=== PATIENT | male | born 1965 | race Caucasian/White ===

== ENCOUNTER 2018-04-11 09:00 | Inpatient (IN) ==
[~2018-04-11 09:00] MED LIST: DEXTROSE 50% 25 GM/50 ML SYRINGE IV PRN; GLUCAGON 1 MG VIAL IM PRN; NITROGLYCERIN SL 0.4 MG TABLET SL PRN; ZOLPIDEM 5 MG TABLET PO PRN
[2018-04-11 10:03] LABS: Basophils # 0.1 10*3/uL (0.0-0.2); Basophils % 0.6 % (0.0-0.8); Eosinophils # 0.1 10*3/uL (0.0-0.87); Eosinophils % 0.8 % (0.00-10.9); Hematocrit 46.5 VOL% (42.0-52.0); Hemoglobin 15.2 GM/DL (14.0-18.0); Immature Granulocytes % 0.6 %; Immature Granulocytes Absolute 0.07 #; Lymphocytes % 18.3 % (21.2-54.2); Mean Corpuscular HGB Conc 32.7 GM/DL (32-36); Mean Corpuscular Hemoglobin 28 PG (27-34); Mean Corpuscular Volume 86.9 FL (87-102); Mean Platelet Volume 10.2 FL (9.6-12.0); Monocytes # 0.7 10*3/uL (0.11-0.8); Monocytes % 6.7 % (1.7-12.7); Neutrophils # 7.9 10*3/uL (1.4-7.4); Platelet Count 270 T/CUMM (130-400); Red Blood Count 5.35 MC/CUMM (3.8-5.5); Red Cell Distribution Width 13.2 % (9.3-17.3); White Blood Count 10.9 T/CUMM (4-12)
[2018-04-11] MEDS ORDERED: CEFUROXIME INJ 1,500 MG in SYRINGE 1 EACH IV ONE (10:16)
[2018-04-11 10:25] LABS: Albumin 3.3 G/DL (3.4-5.0); Bilirubin,Total 0.9 MG/DL (0.2-1.0); Calcium 9.6 MG/DL (8.5-10.1); Osmolality,Calculated 277.1 MOS/KG (273-304); Potassium 3.4 MMOL/L (3.5-5.1); Total Protein 7.7 G/DL (6.4-8.3)
[2018-04-11] MEDS: ROSUVASTATIN 20 MG TABLET PO SCH ×3 (12:14→21:38)
[2018-04-11] MEDS: CHLORTHALIDONE 25 MG TABLET PO SCH ×2 (12:15→12:34)
[2018-04-11] MEDS: ASPIRIN EC 81 MG TABLET PO SCH ×2 (12:15→12:34)
[2018-04-11] MEDS: CHLORHEXIDINE 0.12% ORAL RINSE 60 ML BOTTLE SWISH/SPIT SCH ×4 (12:15→20:45)
[2018-04-11] MEDS ORDERED: POTASSIUM CHLORIDE 20 MEQ TABLET PO ONE (13:35)
[2018-04-11 13:54] LABS: ABG Base Excess 2.6 MMOL/L (-2.5-2.5); ABG HCO3 25.9 MMOL/L (20-26); ABG Oxygen Saturation 97.2 % (95-100); ABG PCO2 35.9 MM HG (35-48); ABG PH 7.476 (7.35-7.45); ABG PO2 89.5 MM HG (80-95); Pt O2 Delivery Device Room Air
[2018-04-11] MEDS: CHLORHEXIDINE 4% SOLN 118 ML BOTTLE TOP SCH (18:24)
[2018-04-12] MEDS: CHLORHEXIDINE 0.12% ORAL RINSE 60 ML BOTTLE SWISH/SPIT SCH ×4 (01:38→22:10)
[2018-04-12] MEDS: CHLORHEXIDINE 4% SOLN 118 ML BOTTLE TOP SCH ×2 (01:39→10:23)
[2018-04-12] MEDS ORDERED: PAPAVERINE 60 MG/2 ML VIAL ONE (04:22)
[2018-04-12] MEDS ORDERED: VANCOMYCIN 1,000 MG VIAL ONE ×2 (04:23→05:45)
[2018-04-12] MEDS ORDERED: CEFUROXIME INJ 1,500 MG in SYRINGE 1 EACH IV ONE (05:30)
[2018-04-12] MEDS ORDERED: DIAZEPAM 5 MG TABLET PO ONE (06:00)
[2018-04-12] MEDS ORDERED: FAMOTIDINE 20 MG TABLET PO ONE (06:00)
[2018-04-12] MEDS ORDERED: NITROPRUSSIDE 50 MG/2 ML VIAL ONE (07:26)
[2018-04-12] MEDS ORDERED: ATROPINE 1 MG/10 ML SYRINGE ONE (07:27)
[2018-04-12] MEDS ORDERED: EPINEPHrine 1 MG/10 ML SYRINGE ONE (07:27)
[2018-04-12] MEDS ORDERED: PHENYLEPHRINE DRIP 40 MG/250 ML PREMIX IV ONE (07:27)
[2018-04-12] MEDS ORDERED: SODIUM BICARBONATE 50 MEQ/50 ML SYRINGE IV ONE ×2 (07:27→09:56)
[2018-04-12] MEDS ORDERED: CALCIUM CHLORIDE 1,000 MG/10 ML SYRINGE IV ONE (07:27)
[2018-04-12 07:38] LABS: ABG Base Excess -1.5 MMOL/L (-2.5-2.5); ABG HCO3 23.2 MMOL/L (20-26); ABG Oxygen Saturation 99.4 % (95-100); ABG PCO2 53.3 MM HG (35-48); ABG PH 7.299 (7.35-7.45); ABG TCO2 22.7 MMOL/L (23-27); Glucose Heart Surgery 136 MG/DL (74-106); Hemoglobin Heart Surgery 14.7 G/DL (14.0-18.0); Ionized Calcium Arterial 1.26 MMOL/L (1.21-1.46); PCO2 Patient Temp Arterial 53.3 MMHG; PH Patient Temp Arterial 7.299; Patient Temperature 37 CELCIUS; Potassium Heart/CVR 4.1 MMOL/L (3.5-5.1); Sodium Heart/CVR 137 MMOL/L (135-145)
[2018-04-12 07:43] LABS: Apearance,Urine CLEAR (Clear); Bilirubin,Urine Negative (Negative); Blood, Urine Moderate mg/dL (Negative); Glucose,Urine (UA) Negative (Negative); Ketones,Urine Negative (Negative); Nitrite,Urine Negative (Negative); Protein,Urine Negative; Urine Color Yellow (Yellow); Urine Specific Gravity 1.013 (1.001-1.035); Urine Urobilinogen < 2.0 EU/DL (0.2-1.0)
[2018-04-12 07:57] LABS: RBC,Urine 15-20 /HPF (0-4)
[2018-04-12 07:58] LABS: Bacteria,Urine Few /HPF (Few); Mucus,Urine Trace /LPF (Occasional)
[2018-04-12 09:08] LABS: Hematocrit Heart Surgery 29.5 PERCENT (42-52); Hemoglobin Heart Surgery 9.5 G/DL (14.0-18.0); PCO2 Patient Temp Venous 40.4 MM HG; PH Patient Temp Venous 7.4; PO2 Patient Temp Venous 39.8 MM HG; Potassium Heart/CVR 4.9 MMOL/L (3.5-5.1); VBG Base Excess 0.4 MEQ/L (0-4); VBG HCO3 24.5 MEQ/L (24-28); VBG Oxygen Saturation 80.5 %; VBG PCO2 44.5 MMHG (41-51); VBG PH 7.371; VBG PO2 45.7 MMHG (17-40)
[2018-04-12] MEDS ORDERED: ALBUMIN 5% 12.5 GM/250 ML VIAL IV ONE (09:16)
[2018-04-12] MEDS ORDERED: POTASSIUM CHLORIDE RIDER 100 ML IV ONE (09:16)
[2018-04-12] MEDS ORDERED: CALCIUM CHLORIDE 1,000 MG/10 ML VIAL IV ONE (09:37)
[2018-04-12] MEDS ORDERED: PHENYLEPHRINE DRIP 20 MG/250 ML PREMIX IV ONE (09:37)
[2018-04-12] MEDS ORDERED: HEPARIN/NACL 0.9% 2 UNITS/ML 500 ML IV ONE (09:38)
[2018-04-12] MEDS ORDERED: SUFentanil 250 MCG/5 ML AMP ONE ×2 (09:38→09:40)
[2018-04-12] MEDS ORDERED: SEVOFLURANE 1 UNIT/15 MINUTE INH ONE (09:38)
[2018-04-12] MEDS ORDERED: MIDAZOLAM 10 MG/2 ML VIAL ONE (09:39)
[2018-04-12] MEDS ORDERED: VECURONIUM 10 MG VIAL IV ONE (09:39)
[2018-04-12] MEDS ORDERED: ETOMIDATE 40 MG/20 ML VIAL IV ONE (09:39)
[2018-04-12] MEDS ORDERED: SODIUM CHLORIDE 0.9% 1,000 ML IV ONE (09:40)
[2018-04-12] MEDS ORDERED: SODIUM CHLORIDE 0.9% 250 ML IV ONE (09:40)
[2018-04-12] MEDS ORDERED: LACTATED RINGERS 1,000 ML IV ONE (09:40)
[2018-04-12] MEDS ORDERED: AMINOCAPROIC ACID 5,000 MG/20 ML VIAL ONE (09:40)
[2018-04-12 09:41] LABS: Hematocrit Heart Surgery 33.7 PERCENT (42-52); Hemoglobin Heart Surgery 10.9 G/DL (14.0-18.0); PCO2 Patient Temp Venous 41.4 MM HG; PH Patient Temp Venous 7.386; PO2 Patient Temp Venous 41.2 MM HG; Potassium Heart/CVR 4.9 MMOL/L (3.5-5.1); VBG Base Excess -0.1 MEQ/L (0-4); VBG HCO3 23.9 MEQ/L (24-28); VBG PCO2 41.4 MMHG (41-51); VBG PH 7.386; VBG PO2 41.2 MMHG (17-40)
[2018-04-12] MEDS ORDERED: DEXTROSE 5% KCL 20 MEQ 20 MEQ/1,000 ML BAG IV ONE (09:55)
[2018-04-12] MEDS ORDERED: MANNITOL 100 GM/500 ML BAG IV ONE (09:55)
[2018-04-12] MEDS ORDERED: ALBUMIN 25% 25 GM/100 ML VIAL IV ONE (09:56)
[2018-04-12] MEDS ORDERED: PROTAMINE SULFATE 250 MG/25 ML VIAL IV ONE (09:56)
[2018-04-12] MEDS ORDERED: MAGNESIUM SULFATE 10 GM/20 ML VIAL IV ONE (09:56)
[2018-04-12] MEDS ORDERED: methylPREDNISolone SOD SUC 1,000 MG/8 ML VIAL ONE (09:56)
[2018-04-12] MEDS ORDERED: HEPARIN 10,000 UNIT/10 ML VIAL ONE (09:56)
[2018-04-12] MEDS ORDERED: FUROSEMIDE 20 MG/2 ML VIAL ONE (09:56)
[2018-04-12 10:09] LABS: ABG Base Excess -0.5 MMOL/L (-2.5-2.5); ABG HCO3 24.1 MMOL/L (20-26); ABG Oxygen Saturation 99.7 % (95-100); ABG PCO2 37.9 MM HG (35-48); ABG PH 7.408 (7.35-7.45); ABG TCO2 20.9 MMOL/L (23-27); Glucose Heart Surgery 231 MG/DL (74-106); Hematocrit Heart Surgery 39.6 PERCENT (42-52); Hemoglobin Heart Surgery 12.9 G/DL (14.0-18.0); Ionized Calcium Arterial 1.33 MMOL/L (1.21-1.46); PCO2 Patient Temp Arterial 37.9 MMHG; PH Patient Temp Arterial 7.408; Patient Temperature 37 CELCIUS; Potassium Heart/CVR 4.3 MMOL/L (3.5-5.1); Sodium Heart/CVR 133 MMOL/L (135-145)
[2018-04-12] MEDS: ASPIRIN EC 81 MG TABLET PO SCH ×2 (10:22→11:16)
[2018-04-12] MEDS: CHLORTHALIDONE 25 MG TABLET PO SCH ×2 (10:22→11:16)
[2018-04-12] MEDS ORDERED: ONDANSETRON 4 MG/2 ML VIAL IV PRN (11:04)
[2018-04-12] MEDS ORDERED: PHENYLEPHRINE DRIP 40 MG/250 ML PREMIX IV PRN (11:04)
[2018-04-12] MEDS ORDERED: INSULIN REGULAR 100 UNIT/ML IV PRN (11:04)
[2018-04-12] MEDS ORDERED: ACETAMINOPHEN 650 MG SUPP RECTAL PRN (11:04)
[2018-04-12] MEDS ORDERED: VECURONIUM 10 MG VIAL IV PRN ×2 (11:04)
[2018-04-12] MEDS ORDERED: MIDAZOLAM 10 MG/2 ML VIAL IV PRN (11:04)
[2018-04-12] MEDS ORDERED: MORPHINE 4 MG/1 ML VIAL IV PRN (11:04)
[2018-04-12] MEDS ORDERED: MIDAZOLAM 2 MG/2 ML VIAL IV PRN (11:04)
[2018-04-12] MEDS ORDERED: SODIUM CHLORIDE 0.45% 1,000 ML IV SCH ×2 (11:04)
[2018-04-12] MEDS ORDERED: MAGNESIUM SULF RIDER 4 GM in PREMIX 1 EACH IV PRN (11:04)
[2018-04-12] MEDS ORDERED: INSULIN REGULAR DRIP 100 ML IV SCH (11:04)
[2018-04-12] MEDS ORDERED: CALCIUM CHLORIDE 1,000 MG/10 ML SYRINGE IV PRN (11:04)
[2018-04-12] MEDS ORDERED: LACTATED RINGERS 250 ML IV PRN (11:04)
[2018-04-12] MEDS ORDERED: MAGNESIUM SULF RIDER 2 GM in PREMIX 1 EACH IV PRN (11:04)
[2018-04-12] MEDS ORDERED: MORPHINE 10 MG/1 ML VIAL IV PRN (11:04)
[2018-04-12] MEDS ORDERED: NITROPRUSSIDE 100 MG in DEXTROSE 5% 250 ML IV PRN (11:04)
[2018-04-12] MEDS ORDERED: INSULIN REGULAR 100 UNIT/ML IV ONE (11:04)
[2018-04-12] MEDS ORDERED: DEXTROSE 50% 25 GM/50 ML SYRINGE IV PRN ×2 (11:04)
[2018-04-12] MEDS: ROSUVASTATIN 20 MG TABLET PO SCH (11:17)
[2018-04-12] MEDS: SODIUM CHLORIDE 0.9% 1,000 ML IV SCH ×3 (11:17→13:25)
[2018-04-12 11:27] LABS: Basophils # 0.1 10*3/uL (0.0-0.2); Basophils % 0.3 % (0.0-0.8); Eosinophils % 0.3 % (0.00-10.9); Hematocrit 39.3 VOL% (42.0-52.0); Hemoglobin 12.6 GM/DL (14.0-18.0); Immature Granulocytes % 1.2 %; Immature Granulocytes Absolute 0.18 #; Lymphocytes # 1.6 10*3/uL (1.4-4.0); Lymphocytes % 10.7 % (21.2-54.2); Mean Corpuscular HGB Conc 32.1 GM/DL (32-36); Mean Corpuscular Hemoglobin 28 PG (27-34); Mean Corpuscular Volume 87.9 FL (87-102); Mean Platelet Volume 10.2 FL (9.6-12.0); Monocytes # 0.5 10*3/uL (0.11-0.8); Monocytes % 3.7 % (1.7-12.7); Neutrophils # 12.1 10*3/uL (1.4-7.4); Neutrophils % 83.8 % (38.7-73.9); Platelet Count 234 T/CUMM (130-400); Red Blood Count 4.47 MC/CUMM (3.8-5.5); Red Cell Distribution Width 13.2 % (9.3-17.3); White Blood Count 14.5 T/CUMM (4-12)
[2018-04-12 11:28] LABS: ABG Base Excess -1.1 MMOL/L (-2.5-2.5); ABG HCO3 23.5 MMOL/L (20-26); ABG Oxygen Saturation 97.9 % (95-100); ABG PCO2 43.3 MM HG (35-48); ABG PH 7.361 (7.35-7.45); ABG TCO2 21.5 MMOL/L (23-27); Glucose Heart Surgery 168 MG/DL (74-106); Hematocrit Heart Surgery 40.5 PERCENT (42-52); Hemoglobin Heart Surgery 13.2 G/DL (14.0-18.0); Potassium Heart/CVR 3.9 MMOL/L (3.5-5.1)
[2018-04-12] MEDS: ALBUMIN 5% 12.5 GM in PREMIX 1 EACH IV PRN ×4 (11:33→23:41)
[2018-04-12] MEDS: POTASSIUM CHLORIDE RIDER 20 MEQ in PREMIX 1 EACH IV PRN ×3 (11:33→17:23)
[2018-04-12 11:36] LABS: PT Patient Result 10.7 SECS; Partial Thromboplastin Time 29.4 SECS (0-40)
[2018-04-12] MEDS: KETOROLAC 30 MG/1 ML VIAL IV SCH ×3 (11:37→22:11)
[2018-04-12] MEDS: LACTATED RINGERS 1,000 ML IV PRN ×2 (11:39→12:48)
[2018-04-12 11:53] LABS: Albumin 3.1 G/DL (3.4-5.0); Bilirubin,Total 0.8 MG/DL (0.2-1.0); Calcium 8.9 MG/DL (8.5-10.1); Osmolality,Calculated 284.3 MOS/KG (273-304); Potassium 3.9 MMOL/L (3.5-5.1); Total Protein 6.5 G/DL (6.4-8.3)
[2018-04-12] MEDS: POTASSIUM CHLORIDE RIDER 10 MEQ in PREMIX 1 EACH IV PRN (12:03)
[2018-04-12 12:06] LABS: CKMB % 4.7 %
[2018-04-12 12:09] LABS: Troponin I 2.59 NG/ML (0.00-0.045)
[2018-04-12] MEDS: ALBUTEROL/IPRATROPIUM 3 ML NEB RESP TX SCH ×2 (12:45→18:48)
[2018-04-12 13:03] LABS: ABG Base Excess -0.5 MMOL/L (-2.5-2.5); ABG Oxygen Saturation 98.5 % (95-100); ABG PCO2 39.3 MM HG (35-48); ABG PH 7.397 (7.35-7.45); ABG TCO2 21.4 MMOL/L (23-27); Glucose Heart Surgery 145 MG/DL (74-106); Hematocrit Heart Surgery 37.2 PERCENT (42-52); Hemoglobin Heart Surgery 12.1 G/DL (14.0-18.0); Potassium Heart/CVR 4.3 MMOL/L (3.5-5.1)
[2018-04-12 16:45] LABS: ABG Base Excess -1.9 MMOL/L (-2.5-2.5); ABG HCO3 22.9 MMOL/L (20-26); ABG PCO2 40.2 MM HG (35-48); ABG TCO2 20.5 MMOL/L (23-27); Glucose Heart Surgery 203 MG/DL (74-106); Hematocrit Heart Surgery 39.3 PERCENT (42-52); Hemoglobin Heart Surgery 12.8 G/DL (14.0-18.0); Potassium Heart/CVR 4.4 MMOL/L (3.5-5.1)
[2018-04-12] MEDS: CEFUROXIME INJ 1,500 MG in SYRINGE 1 EACH IV SCH (18:09)
[2018-04-12 18:51] LABS: ABG Base Excess -2.8 MMOL/L (-2.5-2.5); ABG Oxygen Saturation 96.8 % (95-100); ABG PCO2 41.8 MM HG (35-48); ABG PH 7.345 (7.35-7.45); ABG PO2 92.2 MM HG (80-95); ABG TCO2 20.2 MMOL/L (23-27); Glucose Heart Surgery 219 MG/DL (74-106); Hematocrit Heart Surgery 38.9 PERCENT (42-52); Hemoglobin Heart Surgery 12.6 G/DL (14.0-18.0); Potassium Heart/CVR 4.6 MMOL/L (3.5-5.1)
[2018-04-12 19:41] LABS: CKMB % 3.4 %
[2018-04-12] MEDS: INSULIN REGULAR 100 UNIT/ML SUBCUT SCH ×2 (19:42→23:41)
[2018-04-12 19:44] LABS: Troponin I 2.55 NG/ML (0.00-0.045)
[2018-04-13] MEDS: ALBUTEROL/IPRATROPIUM 3 ML NEB RESP TX SCH ×4 (00:03→19:57)
[2018-04-13 03:26] LABS: ABG Base Excess -0.5 MMOL/L (-2.5-2.5); ABG HCO3 23.9 MMOL/L (20-26); ABG Oxygen Saturation 93.8 % (95-100); ABG PCO2 39.4 MM HG (35-48); ABG PH 7.397 (7.35-7.45); ABG PO2 68.4 MM HG (80-95); ABG TCO2 21.5 MMOL/L (23-27); Glucose Heart Surgery 172 MG/DL (74-106); Hematocrit Heart Surgery 36.8 PERCENT (42-52); Potassium Heart/CVR 3.9 MMOL/L (3.5-5.1)
[2018-04-13 03:32] LABS: Basophils % 0.1 % (0.0-0.8); Hematocrit 35.2 VOL% (42.0-52.0); Hemoglobin 11.4 GM/DL (14.0-18.0); Immature Granulocytes Absolute 0.21 #; Lymphocytes # 1.2 10*3/uL (1.4-4.0); Lymphocytes % 5.6 % (21.2-54.2); Mean Corpuscular HGB Conc 32.4 GM/DL (32-36); Mean Corpuscular Hemoglobin 29 PG (27-34); Mean Corpuscular Volume 88.9 FL (87-102); Mean Platelet Volume 10.4 FL (9.6-12.0); Monocytes # 1.2 10*3/uL (0.11-0.8); Monocytes % 5.7 % (1.7-12.7); Neutrophils # 19.2 10*3/uL (1.4-7.4); Neutrophils % 87.6 % (38.7-73.9); Platelet Count 275 T/CUMM (130-400); Red Blood Count 3.96 MC/CUMM (3.8-5.5); Red Cell Distribution Width 13.4 % (9.3-17.3); White Blood Count 21.9 T/CUMM (4-12)
[2018-04-13 03:57] LABS: Albumin 3.8 G/DL (3.4-5.0); Bilirubin,Direct 0.18 MG/DL (0.0-0.20); Bilirubin,Total 0.6 MG/DL (0.2-1.0); Calcium 9.2 MG/DL (8.5-10.1); Osmolality,Calculated 282.5 MOS/KG (273-304); Potassium 3.9 MMOL/L (3.5-5.1)
[2018-04-13] MEDS: KETOROLAC 30 MG/1 ML VIAL IV SCH ×4 (04:07→22:21)
[2018-04-13] MEDS: INSULIN REGULAR 100 UNIT/ML SUBCUT SCH ×2 (04:07→07:22)
[2018-04-13 04:09] LABS: CKMB % 2.6 %
[2018-04-13 04:13] LABS: Troponin I 1.66 NG/ML (0.00-0.045)
[2018-04-13] MEDS: POTASSIUM CHLORIDE RIDER 20 MEQ in PREMIX 1 EACH IV PRN (04:15)
[2018-04-13 04:27] LABS: ABG Base Excess -0.6 MMOL/L (-2.5-2.5); ABG HCO3 23.9 MMOL/L (20-26); ABG Oxygen Saturation 95.9 % (95-100); ABG PH 7.406 (7.35-7.45); ABG PO2 78.3 MM HG (80-95); ABG TCO2 21.2 MMOL/L (23-27); Glucose Heart Surgery 168 MG/DL (74-106); Hematocrit Heart Surgery 35.9 PERCENT (42-52); Hemoglobin Heart Surgery 11.7 G/DL (14.0-18.0); Potassium Heart/CVR 3.9 MMOL/L (3.5-5.1)
[2018-04-13 04:35] LABS: Lymphocytes 2 % (20-55); Platelet Estimate Normal; Polychromasia Few; Segmented Neutrophils 95 % (50-85); Total Cells Counted 100
[2018-04-13] MEDS: POTASSIUM CHLORIDE RIDER 10 MEQ in PREMIX 1 EACH IV PRN (04:47)
[2018-04-13] MEDS: CEFUROXIME INJ 1,500 MG in SYRINGE 1 EACH IV SCH (06:13)
[2018-04-13] MEDS: CHLORHEXIDINE 0.12% ORAL RINSE 60 ML BOTTLE SWISH/SPIT SCH ×3 (08:11→21:09)
[2018-04-13] MEDS ORDERED: CHLORTHALIDONE 25 MG TABLET PO SCH (09:00)
[2018-04-13] MEDS ORDERED: ALUMINUM/MAGNES/SIMETH MAX STR 30 ML UDCUP PO PRN (10:00)
[2018-04-13] MEDS ORDERED: GLUCAGON 1 MG VIAL IM PRN ×2 (10:00)
[2018-04-13] MEDS ORDERED: POTASSIUM CHLORIDE 20 MEQ TABLET PO PRN (10:00)
[2018-04-13] MEDS ORDERED: ONDANSETRON 4 MG/2 ML VIAL IV PRN (10:00)
[2018-04-13] MEDS ORDERED: ACETAMINOPHEN 325 MG TABLET PO PRN (10:00)
[2018-04-13] MEDS ORDERED: MAGNESIUM SULF RIDER 4 GM in PREMIX 1 EACH IV PRN (10:00)
[2018-04-13] MEDS ORDERED: MORPHINE 4 MG/1 ML VIAL IV PRN (10:00)
[2018-04-13] MEDS ORDERED: MAGNESIUM SULF RIDER 2 GM in PREMIX 1 EACH IV PRN (10:00)
[2018-04-13] MEDS ORDERED: SODIUM CHLOR 0.45% KCL 20 MEQ 20 MEQ/1,000 ML BAG IV SCH (10:00)
[2018-04-13] MEDS ORDERED: MAGNESIUM HYDROXIDE SUSP 30 ML UDCUP PO PRN (10:00)
[2018-04-13] MEDS ORDERED: DEXTROSE 50% 25 GM/50 ML SYRINGE IV PRN ×2 (10:00)
[2018-04-13 10:05] LABS: ABG Base Excess -1.8 MMOL/L (-2.5-2.5); ABG HCO3 22.8 MMOL/L (20-26); ABG Oxygen Saturation 92.8 % (95-100); ABG TCO2 19.6 MMOL/L (23-27); Glucose Heart Surgery 210 MG/DL (74-106); Hematocrit Heart Surgery 37.2 PERCENT (42-52); Hemoglobin Heart Surgery 12.1 G/DL (14.0-18.0); Potassium Heart/CVR 3.9 MMOL/L (3.5-5.1)
[2018-04-13] MEDS: PHENYLEPHRINE DRIP 40 MG/250 ML PREMIX IV PRN ×2 (10:05→17:18)
[2018-04-13] MEDS ORDERED: FUROSEMIDE 40 MG/4 ML VIAL IV ONE ×2 (10:12)
[2018-04-13] MEDS: FERROUS SULFATE 325 MG TABLET PO SCH (10:14)
[2018-04-13] MEDS: ASPIRIN EC 81 MG TABLET PO SCH (10:28)
[2018-04-13] MEDS: DOCUSATE SODIUM 100 MG CAPSULE PO SCH (10:28)
[2018-04-13] MEDS: PANTOPRAZOLE 40 MG TABLET PO SCH (10:29)
[2018-04-13] MEDS ORDERED: PHENYLEPHRINE DRIP 40 MG/250 ML PREMIX IV ONE (17:04)
[2018-04-13] MEDS ORDERED: CEFUROXIME INJ 1,500 MG in SYRINGE 1 EACH IV ONE (18:17)
[2018-04-13] MEDS ORDERED: ALBUMIN 5% 25 GM in PREMIX 1 EACH IV ONE (18:32)
[2018-04-13] MEDS ORDERED: ALBUMIN 5% 12.5 GM/250 ML VIAL IV ONE (18:36)
[2018-04-13] MEDS: ZALEPLON 5 MG CAPSULE PO PRN ×2 (21:09→22:20)
[2018-04-13] MEDS: ROSUVASTATIN 20 MG TABLET PO SCH (21:09)
[2018-04-13] MEDS: oxyCODONE/ACETAMINOPHEN 5-325 MG TABLET PO PRN (21:10)
[2018-04-14] MEDS ORDERED: ALBUMIN 5% 25 GM in PREMIX 1 EACH IV ONE
[2018-04-14] MEDS: ALBUTEROL/IPRATROPIUM 3 ML NEB RESP TX SCH ×4 (03:07→19:57)
[2018-04-14 04:47] LABS: ABG Base Excess 1.4 MMOL/L (-2.5-2.5); ABG HCO3 25.7 MMOL/L (20-26); ABG PCO2 40.6 MM HG (35-48); ABG PH 7.415 (7.35-7.45); ABG PO2 88.1 MM HG (80-95); ABG TCO2 23.4 MMOL/L (23-27)
[2018-04-14] MEDS: KETOROLAC 30 MG/1 ML VIAL IV SCH ×4 (04:48→21:42)
[2018-04-14 04:56] LABS: Basophils % 0.1 % (0.0-0.8); Hematocrit 31.3 VOL% (42.0-52.0); Hemoglobin 10.1 GM/DL (14.0-18.0); Immature Granulocytes % 0.9 %; Immature Granulocytes Absolute 0.23 #; Lymphocytes # 1.8 10*3/uL (1.4-4.0); Mean Corpuscular HGB Conc 32.3 GM/DL (32-36); Mean Corpuscular Hemoglobin 29 PG (27-34); Mean Corpuscular Volume 88.7 FL (87-102); Mean Platelet Volume 10.9 FL (9.6-12.0); Monocytes # 1.9 10*3/uL (0.11-0.8); Monocytes % 7.5 % (1.7-12.7); Neutrophils # 21.8 10*3/uL (1.4-7.4); Neutrophils % 84.5 % (38.7-73.9); Platelet Count 250 T/CUMM (130-400); Red Blood Count 3.53 MC/CUMM (3.8-5.5); Red Cell Distribution Width 13.6 % (9.3-17.3); White Blood Count 25.8 T/CUMM (4-12)
[2018-04-14 05:18] LABS: Alanine Aminotransferase 16 U/L (16-61); Albumin 3.6 G/DL (3.4-5.0); Alkaline Phosphatase 63 U/L (45-117); Aspartate Amino Transferase 13 U/L (0-37); Bilirubin,Indirect 0.4 MG/DL (0.0-1.0); Blood Urea Nitrogen 27 MG/DL (7-18); Calcium 8.8 MG/DL (8.5-10.1); Glucose 146 MG/DL (74-106); Osmolality,Calculated 282.7 MOS/KG (273-304); Potassium 4.2 MMOL/L (3.5-5.1); Sodium 138 MMOL/L (136-145); Total Protein 6.7 G/DL (6.4-8.3)
[2018-04-14 05:21] LABS: Troponin I 0.783 NG/ML (0.00-0.045)
[2018-04-14 05:28] LABS: Atypical Lymphocytes Few; Hypochromasia 1+; Lymphocytes 8 % (20-55); Segmented Neutrophils 87 % (50-85); Total Cells Counted 100
[2018-04-14 05:29] LABS: Microcytosis 1+; Platelet Estimate Normal
[2018-04-14] MEDS ORDERED: FUROSEMIDE 40 MG/4 ML VIAL IV ONE ×2 (06:00)
[2018-04-14] MEDS: FERROUS SULFATE 325 MG TABLET PO SCH (08:50)
[2018-04-14] MEDS: DOCUSATE SODIUM 100 MG CAPSULE PO SCH (08:50)
[2018-04-14] MEDS: PANTOPRAZOLE 40 MG TABLET PO SCH (08:50)
[2018-04-14] MEDS: CHLORHEXIDINE 0.12% ORAL RINSE 60 ML BOTTLE SWISH/SPIT SCH ×2 (08:50→21:38)
[2018-04-14] MEDS: ASPIRIN EC 81 MG TABLET PO SCH (08:50)
[2018-04-14] MEDS: ROSUVASTATIN 20 MG TABLET PO SCH (21:38)
[2018-04-15] MEDS: ALBUTEROL/IPRATROPIUM 3 ML NEB RESP TX SCH ×4 (01:51→19:10)
[2018-04-15] MEDS: KETOROLAC 30 MG/1 ML VIAL IV SCH ×4 (05:25→21:24)
[2018-04-15 05:39] LABS: Basophils % 0.1 % (0.0-0.8); Hematocrit 32.8 VOL% (42.0-52.0); Hemoglobin 10.4 GM/DL (14.0-18.0); Immature Granulocytes % 0.7 %; Lymphocytes # 2.3 10*3/uL (1.4-4.0); Lymphocytes % 15.4 % (21.2-54.2); Mean Corpuscular HGB Conc 31.7 GM/DL (32-36); Mean Corpuscular Hemoglobin 29 PG (27-34); Mean Corpuscular Volume 89.9 FL (87-102); Mean Platelet Volume 10.9 FL (9.6-12.0); Monocytes # 1.3 10*3/uL (0.11-0.8); Monocytes % 8.5 % (1.7-12.7); Neutrophils # 11.3 10*3/uL (1.4-7.4); Neutrophils % 75.3 % (38.7-73.9); Platelet Count 236 T/CUMM (130-400); Red Blood Count 3.65 MC/CUMM (3.8-5.5); Red Cell Distribution Width 13.8 % (9.3-17.3)
[2018-04-15 06:04] LABS: Alanine Aminotransferase 41 U/L (16-61); Albumin 3.4 G/DL (3.4-5.0); Alkaline Phosphatase 73 U/L (45-117); Aspartate Amino Transferase 29 U/L (0-37); Bilirubin,Indirect 0.3 MG/DL (0.0-1.0); Blood Urea Nitrogen 28 MG/DL (7-18); Calcium 8.9 MG/DL (8.5-10.1); Glucose 112 MG/DL (74-106); Osmolality,Calculated 281.7 MOS/KG (273-304); Potassium 3.9 MMOL/L (3.5-5.1); Sodium 138 MMOL/L (136-145)
[2018-04-15 06:05] LABS: Troponin I 0.406 NG/ML (0.00-0.045)
[2018-04-15] MEDS: DOCUSATE SODIUM 100 MG CAPSULE PO SCH (10:08)
[2018-04-15] MEDS: PANTOPRAZOLE 40 MG TABLET PO SCH (10:08)
[2018-04-15] MEDS: CHLORHEXIDINE 0.12% ORAL RINSE 60 ML BOTTLE SWISH/SPIT SCH ×2 (10:08→21:23)
[2018-04-15] MEDS: ASPIRIN EC 81 MG TABLET PO SCH (10:08)
[2018-04-15] MEDS: FERROUS SULFATE 325 MG TABLET PO SCH (10:08)
[2018-04-15] MEDS: ROSUVASTATIN 20 MG TABLET PO SCH (21:23)
[2018-04-16] MEDS: ALBUTEROL/IPRATROPIUM 3 ML NEB RESP TX SCH ×4 (00:42→18:53)
[2018-04-16] MEDS: KETOROLAC 30 MG/1 ML VIAL IV SCH (04:05)
[2018-04-16] MEDS: DOCUSATE SODIUM 100 MG CAPSULE PO SCH (09:59)
[2018-04-16] MEDS: ASPIRIN EC 81 MG TABLET PO SCH (09:59)
[2018-04-16] MEDS: CHLORHEXIDINE 0.12% ORAL RINSE 60 ML BOTTLE SWISH/SPIT SCH ×2 (09:59→22:14)
[2018-04-16] MEDS: PANTOPRAZOLE 40 MG TABLET PO SCH (09:59)
[2018-04-16] MEDS: FERROUS SULFATE 325 MG TABLET PO SCH (09:59)
[2018-04-16] MEDS: oxyCODONE/ACETAMINOPHEN 5-325 MG TABLET PO PRN ×2 (10:02→22:55)
[2018-04-16] MEDS: ROSUVASTATIN 20 MG TABLET PO SCH (22:14)
[2018-04-17] MEDS: ALBUTEROL/IPRATROPIUM 3 ML NEB RESP TX SCH ×2 (00:12→07:15)
[2018-04-17 05:10] LABS: Basophils # 0.1 10*3/uL (0.0-0.2); Basophils % 0.8 % (0.0-0.8); Eosinophils # 0.3 10*3/uL (0.0-0.87); Eosinophils % 3.2 % (0.00-10.9); Hematocrit 37.3 VOL% (42.0-52.0); Hemoglobin 11.8 GM/DL (14.0-18.0); Immature Granulocytes % 3.8 %; Immature Granulocytes Absolute 0.35 #; Lymphocytes # 2.9 10*3/uL (1.4-4.0); Lymphocytes % 32.1 % (21.2-54.2); Mean Corpuscular HGB Conc 31.6 GM/DL (32-36); Mean Corpuscular Hemoglobin 28 PG (27-34); Mean Corpuscular Volume 89.2 FL (87-102); Mean Platelet Volume 10.7 FL (9.6-12.0); Monocytes # 0.8 10*3/uL (0.11-0.8); Monocytes % 8.4 % (1.7-12.7); Neutrophils # 4.7 10*3/uL (1.4-7.4); Neutrophils % 51.7 % (38.7-73.9); Platelet Count 273 T/CUMM (130-400); Red Blood Count 4.18 MC/CUMM (3.8-5.5); Red Cell Distribution Width 13.5 % (9.3-17.3); White Blood Count 9.1 T/CUMM (4-12)
[2018-04-17 05:36] LABS: Alanine Aminotransferase 150 U/L (16-61); Alkaline Phosphatase 85 U/L (45-117); Aspartate Amino Transferase 45 U/L (0-37); Bilirubin,Indirect 0.6 MG/DL (0.0-1.0); Blood Urea Nitrogen 20 MG/DL (7-18); Calcium 8.9 MG/DL (8.5-10.1); Glucose 109 MG/DL (74-106); Osmolality,Calculated 278.7 MOS/KG (273-304); Potassium 4.2 MMOL/L (3.5-5.1); Sodium 138 MMOL/L (136-145); Total Protein 6.5 G/DL (6.4-8.3)
[2018-04-17 08:33] VITALS: BP 108/73
[2018-04-17] MEDS: CHLORHEXIDINE 0.12% ORAL RINSE 60 ML BOTTLE SWISH/SPIT SCH (09:13)
[2018-04-17] MEDS: ASPIRIN EC 81 MG TABLET PO SCH (09:13)
[2018-04-17] MEDS: PANTOPRAZOLE 40 MG TABLET PO SCH (09:13)
[2018-04-17] MEDS: FERROUS SULFATE 325 MG TABLET PO SCH (09:13)
[2018-04-17] MEDS: DOCUSATE SODIUM 100 MG CAPSULE PO SCH (09:13)
== END 2018-04-17 10:15 | disposition home health service (06) | DRG 236 ==
LOC: N.TELEN 09:26 → N.CVR 04-12 10:27 → N.ICU 04-13 09:33 → N.TELES 04-14 14:17